=== PATIENT | male | born 1960 | race African-American/Black ===

== ENCOUNTER 2020-10-07 14:53 | Emergency (ER) | payer SELFPAY ==
[~2020-10-07] VITALS: Ht 185.4 cm; Wt 71.7 kg
[2020-10-07] MEDS ORDERED: KEPPRA500 MG PO (16:25)
== END 2020-10-07 16:36 | disposition home or self-care (01) ==
LOC: ED 14:53
DX: G40.909 Epilepsy, unspecified, not intractable, without status epilepticus (principal)
CPT/HCPCS: 70450; 90471; 90715; 99285-25